=== PATIENT | female | born 1945 | race Caucasian/White ===

== ENCOUNTER 2020-05-26 13:37 | Inpatient (IN) ==
[2020-05-26] MEDS ORDERED: Isovue-370 500 ML BOTTLE IVP ONE (13:45)
[2020-05-26 14:18] LABS: Basophils % 0.3 %; Eosinophils # 0.1 K/mcL (0.0-0.6); Eosinophils % 1.3 %; Immature Granulocytes % 0.3 % (0-4); Lymphocytes # 1.3 K/mcL (0.6-4.6); Lymphocytes % 18.7 %; Mean Corpuscular HGB Conc 31.3 g/dL (31.6-35.5); Mean Corpuscular Hemoglobin 30.5 pg (28.0-33.3); Mean Corpuscular Volume 97.8 fL (83.0-100.0); Mean Platelet Volume 9.3 fL (9.4-12.4); Monocytes # 0.5 K/mcL (0.0-1.3); Monocytes % 7.1 %; Neutrophils # 5.1 K/mcL (1.6-8.9); Platelet Count 203 K/mcL (140-400); Red Blood Count 4.91 M/mcL (3.82-4.97); Red Cell Distribution Width 15.3 % (11.5-14.5); Segmented Neutrophils % 72.3 %; White Blood Count 7.1 K/mcL (4.3-11.1)
[2020-05-26 14:27] LABS: ABG Base Excess 9 mEq/L (-2 to 3); ABG HCO3 38 mEq/L (21-27); ABG Oxygen Saturation 93 % (95-98); ABG PCO2 70 mmHg (35-45); ABG PH 7.35 pH Units (7.32-7.45); ABG PO2 73 mmHg (85-104); ABG TCO2 40 mEq/L (20-26)
[2020-05-26 14:41] LABS: Troponin I 0.14 ng/mL (< 0.04)
[2020-05-26 14:45] LABS: Prothrombin Time 11.3 Seconds (9.4-12.1)
[2020-05-26 14:48] LABS: Alanine Aminotransferase 17 Units/L (7-52); Albumin 3.4 g/dL (3.5-5.7); Albumin/Globulin Ratio 1.8 (1.1-2.2); Alkaline Phosphatase 50 Units/L (34-104); Aspartate Amino Transferase 18 Units/L (13-39); BUN/Creatinine Ratio 18 (6-26); Bilirubin,Direct 0.2 mg/dL (0.0-0.2); Bilirubin,Indirect 0.9 mg/dL (0.0-1.0); Bilirubin,Total 1.1 mg/dL (0.3-1.0); Blood Urea Nitrogen 8 mg/dL (8-23); Calcium 8.9 mg/dL (8.6-10.3); Carbon Dioxide 35 mEq/L (23-29); Chloride 98 mEq/L (98-107); Globulin 1.9 g/dL (2.4-3.5); Glucose 70 mg/dL (70-105); Osmolality,Calculated 279 (280-300); Potassium 4.1 mEq/L (3.5-5.1); Sodium 136 mEq/L (136-145); Total Protein 5.3 g/dL (6.4-8.9); eGFR For African Americans > 60 (> 60); eGFR For Non-African Americans > 60 (> 60)
[2020-05-26 15:07] LABS: Adenovirus Not Detected (Not Detect); Bordetella Pertussis Not Detected (Not Detect); Chlamydophila pneumoniae Not Detected (Not Detect); Coronavirus 229E Not Detected (Not Detect); Coronavirus HKU1 Not Detected (Not Detect); Coronavirus NL63 Not Detected (Not Detect); Coronavirus OC43 Not Detected (Not Detect); Human Metapneumovirus Not Detected (Not Detect); Human Rhinovirus/Enterovirus Not Detected (Not Detect); Influenza A Subtype 2009 H1 Not Detected (Not Detect); Influenza B Not Detected (Not Detect); Mycoplasma pneumoniae Not Detected (Not Detect); Parainfluenza Virus 1 Not Detected (Not Detect); Parainfluenza Virus 2 Not Detected (Not Detect); Parainfluenza Virus 3 Not Detected (Not Detect); Parainfluenza Virus 4 Not Detected (Not Detect); Respiratory Syncytial Virus Not Detected (Not Detect)
[2020-05-26] MEDS ORDERED: Furosemide 40 MG/4 ML VIAL IVP ONE (17:12)
[2020-05-26] MEDS ORDERED: Naloxone 0.4 MG/ML INJ IVP PRN (17:16)
[2020-05-26] MEDS ORDERED: Ondansetron 4 MG/2 ML VIAL IVP PRN (17:16)
[2020-05-26 18:13] LABS: Thyroid Stimulating Hormone 2.366 mcIU/mL (0.340-5.600)
[2020-05-26] MEDS: Furosemide 40 MG/4 ML VIAL IVP SCH (21:26)
[2020-05-26] MEDS: Ipratropium/Albuterol Neb 3 ML IH SCH ×2 (22:04→23:08)
[2020-05-26] MEDS: Azithromycin 500 MG in 0.9 % Sodium Chloride 250 ML IVPB SCH (22:24)
[2020-05-26] MEDS: *HR* Heparin 5,000 UNIT/ML VIAL SQ SCH (22:25)
[2020-05-26] MEDS: MethylPREDNISolone 40 MG/ML VIAL IVP SCH (22:25)
[2020-05-26] MEDS: Budesonide/Formoterol 160/4.5 1 PUFF INH IH SCH (22:39)
[2020-05-27 03:10] LABS: Basophils % 0.4 %; Eosinophils # 0.1 K/mcL (0.0-0.6); Eosinophils % 2.4 %; Hematocrit 47.8 % (35.3-44.9); Hemoglobin 14.6 g/dL (11.5-15.4); Immature Granulocytes % 0.2 % (0-4); Lymphocytes # 1.4 K/mcL (0.6-4.6); Lymphocytes % 28.1 %; Mean Corpuscular HGB Conc 30.5 g/dL (31.6-35.5); Mean Corpuscular Hemoglobin 30.4 pg (28.0-33.3); Mean Corpuscular Volume 99.6 fL (83.0-100.0); Mean Platelet Volume 9.7 fL (9.4-12.4); Monocytes # 0.4 K/mcL (0.0-1.3); Monocytes % 8.9 %; Platelet Count 177 K/mcL (140-400); Red Cell Distribution Width 15.1 % (11.5-14.5)
[2020-05-27 03:33] LABS: BUN/Creatinine Ratio 20 (6-26); Blood Urea Nitrogen 7 mg/dL (8-23); Calcium 8.3 mg/dL (8.6-10.3); Carbon Dioxide 33 mEq/L (23-29); Chloride 98 mEq/L (98-107); Glucose 75 mg/dL (70-105); Magnesium 1.8 mg/dL (1.6-2.6); Osmolality,Calculated 281 (280-300); Phosphorous 3.8 mg/dL (2.7-4.5); Potassium 3.9 mEq/L (3.5-5.1); Sodium 137 mEq/L (136-145); Troponin I 0.13 ng/mL (< 0.04); eGFR For African Americans > 60 (> 60); eGFR For Non-African Americans > 60 (> 60)
[2020-05-27] MEDS: Ipratropium/Albuterol Neb 3 ML IH SCH ×5 (03:52→20:12)
[2020-05-27] MEDS: MethylPREDNISolone 40 MG/ML VIAL IVP SCH ×2 (05:20→17:41)
[2020-05-27] MEDS: *HR* Heparin 5,000 UNIT/ML VIAL SQ SCH ×2 (05:21→17:41)
[2020-05-27] MEDS: Budesonide/Formoterol 160/4.5 1 PUFF INH IH SCH ×2 (08:07→20:13)
[2020-05-27] MEDS: Aspirin 81 MG TAB.CHEW PO SCH (08:35)
[2020-05-27] MEDS: lisinopriL 20 MG TABLET PO SCH (08:35)
[2020-05-27] MEDS: Furosemide 40 MG/4 ML VIAL IVP SCH ×2 (08:35→22:02)
[2020-05-27] MEDS: Azithromycin 500 MG in 0.9 % Sodium Chloride 250 ML IVPB SCH (17:41)
[2020-05-28] MEDS: Ipratropium/Albuterol Neb 3 ML IH SCH ×7 (00:03→23:00)
[2020-05-28] MEDS: *HR* Heparin 5,000 UNIT/ML VIAL SQ SCH ×2 (04:57→18:01)
[2020-05-28] MEDS: MethylPREDNISolone 40 MG/ML VIAL IVP SCH ×2 (04:58→17:56)
[2020-05-28 05:27] LABS: Basophils % 0.2 %; Hematocrit 45.6 % (35.3-44.9); Hemoglobin 14.1 g/dL (11.5-15.4); Immature Granulocytes % 0.4 % (0-4); Lymphocytes # 1.1 K/mcL (0.6-4.6); Lymphocytes % 21.2 %; Mean Corpuscular HGB Conc 30.9 g/dL (31.6-35.5); Mean Corpuscular Hemoglobin 30.7 pg (28.0-33.3); Mean Corpuscular Volume 99.3 fL (83.0-100.0); Mean Platelet Volume 9.9 fL (9.4-12.4); Monocytes # 0.2 K/mcL (0.0-1.3); Monocytes % 4.6 %; Neutrophils # 3.8 K/mcL (1.6-8.9); Platelet Count 190 K/mcL (140-400); Red Blood Count 4.59 M/mcL (3.82-4.97); Red Cell Distribution Width 14.7 % (11.5-14.5); Segmented Neutrophils % 73.6 %; White Blood Count 5.2 K/mcL (4.3-11.1)
[2020-05-28 05:45] LABS: BUN/Creatinine Ratio 49 (6-26); Blood Urea Nitrogen 21 mg/dL (8-23); Calcium 8.7 mg/dL (8.6-10.3); Carbon Dioxide 39 mEq/L (23-29); Chloride 97 mEq/L (98-107); Glucose 112 mg/dL (70-105); Osmolality,Calculated 294 (280-300); Phosphorous 3.9 mg/dL (2.7-4.5); Potassium 4.3 mEq/L (3.5-5.1); Sodium 140 mEq/L (136-145); eGFR For African Americans > 60 (> 60); eGFR For Non-African Americans > 60 (> 60)
[2020-05-28] MEDS: Budesonide/Formoterol 160/4.5 1 PUFF INH IH SCH ×2 (07:55→19:52)
[2020-05-28] MEDS: Furosemide 40 MG TABLET PO SCH ×2 (09:40→17:56)
[2020-05-28] MEDS: lisinopriL 20 MG TABLET PO SCH (09:40)
[2020-05-28] MEDS: Aspirin 81 MG TAB.CHEW PO SCH (09:40)
[2020-05-28] MEDS ORDERED: 0.9 % Sodium Chloride 250 ML ONE (17:40)
[2020-05-28] MEDS: Azithromycin 500 MG in 0.9 % Sodium Chloride 250 ML IVPB SCH ×2 (18:01→18:56)
[2020-05-28] MEDS ORDERED: Acetaminophen 325 MG TABLET PO PRN (18:04)
[2020-05-28] MEDS ORDERED: *HR* OxyCODONE/APAP 5/325 TABLET PO PRN (18:37)
[2020-05-29] MEDS: Ipratropium/Albuterol Neb 3 ML IH SCH ×4 (04:00→16:05)
[2020-05-29] MEDS: *HR* Heparin 5,000 UNIT/ML VIAL SQ SCH ×2 (05:39→16:22)
[2020-05-29] MEDS: MethylPREDNISolone 40 MG/ML VIAL IVP SCH ×2 (05:39→16:22)
[2020-05-29 07:12] LABS: Hematocrit 43.9 % (35.3-44.9); Hemoglobin 14.1 g/dL (11.5-15.4); Immature Granulocytes % 0.2 % (0-4); Lymphocytes # 1.3 K/mcL (0.6-4.6); Lymphocytes % 27.1 %; Mean Corpuscular HGB Conc 32.1 g/dL (31.6-35.5); Mean Corpuscular Hemoglobin 31.4 pg (28.0-33.3); Mean Corpuscular Volume 97.8 fL (83.0-100.0); Mean Platelet Volume 9.7 fL (9.4-12.4); Monocytes # 0.3 K/mcL (0.0-1.3); Monocytes % 5.7 %; Neutrophils # 3.2 K/mcL (1.6-8.9); Platelet Count 203 K/mcL (140-400); Red Blood Count 4.49 M/mcL (3.82-4.97); Red Cell Distribution Width 14.6 % (11.5-14.5); White Blood Count 4.8 K/mcL (4.3-11.1)
[2020-05-29] MEDS: Budesonide/Formoterol 160/4.5 1 PUFF INH IH SCH (07:28)
[2020-05-29 07:44] LABS: BUN/Creatinine Ratio 40 (6-26); Blood Urea Nitrogen 19 mg/dL (8-23); Calcium 8.7 mg/dL (8.6-10.3); Carbon Dioxide 43 mEq/L (23-29); Chloride 92 mEq/L (98-107); Glucose 103 mg/dL (70-105); Magnesium 1.9 mg/dL (1.6-2.6); Osmolality,Calculated 287 (280-300); Phosphorous 4.1 mg/dL (2.7-4.5); Potassium 3.8 mEq/L (3.5-5.1); Sodium 137 mEq/L (136-145); eGFR For African Americans > 60 (> 60); eGFR For Non-African Americans > 60 (> 60)
[2020-05-29] MEDS: Aspirin 81 MG TAB.CHEW PO SCH (09:20)
[2020-05-29] MEDS: lisinopriL 20 MG TABLET PO SCH (09:20)
[2020-05-29] MEDS: Furosemide 40 MG TABLET PO SCH ×2 (09:21→16:22)
[2020-05-29 15:32] VITALS: BP 101/49
== END 2020-05-29 16:51 | disposition home or self-care (01) | DRG 280 ==
LOC: EMEROOARM 13:37 → 2ANU 13:37
PROVIDERS: ADMIT Internal Medicine; ATTEND Internal Medicine